=== PATIENT | male | born 1985 | race Asian ===

== ENCOUNTER 2020-06-10 09:38 | Emergency (ER) | payer MEDICAID ==
[~2020-06-10] VITALS: Ht 167.6 cm; Wt 95.5 kg
[2020-06-10] MEDS ORDERED: ACETAMINOPHEN 500 MG TABLET PO ONE (11:00)
[2020-06-10] MEDS ORDERED: POVIDONE-IODINE 10% 15 ML SOLUTION UD TP ONE (11:00)
[2020-06-10] MEDS ORDERED: PERTUSS(ACELL),DIPH,TET VAC/PF 0.5 ML VIAL IM ONE (11:00)
[2020-06-10] MEDS ORDERED: BACITRACIN 0.9 GM PACKET OINTMENT TP ONE (11:00)
[2020-06-10] MEDS ORDERED: AMOX TR/POT CLAV 875 MG/125 MG TABLET PO ONE (11:00)
[2020-06-10] MEDS ORDERED: LIDOCAINE 1% 10 ML VIAL INJ ONE (11:30)
[2020-06-10 13:03] VITALS: BP 133/69
== END 2020-06-10 13:26 | disposition home or self-care (01) ==
LOC: EMS 09:52
DX: S61.412A Laceration without foreign body of left hand, initial encounter (principal); W54.0XXA Bitten by dog, initial encounter; Y93.39 Activity, other involving climbing, rappelling and jumping off; Y92.89 Other specified places as the place of occurrence of the external cause; Y99.8 Other external cause status
CPT/HCPCS: 12004; 90471; 90715; 99283; J3490; 12002

== ENCOUNTER 2023-01-18 16:56 | Emergency (ER) | payer MEDICAID ==
[~2023-01-18] VITALS: Ht 165.1 cm; Wt 95.5 kg
[2023-01-18] MEDS ORDERED: SODIUM CHLORIDE 0.9% 250 ML IRRIG SOLUTION BOTTLE IRRIG ONE (21:00)
[2023-01-18] MEDS ORDERED: IBUPROFEN 600 MG TABLET PO ONE (21:00)
[2023-01-18] MEDS ORDERED: AMOX TR/POT CLAV 875 MG/125 MG TABLET PO ONE (21:00)
[2023-01-18 22:24] VITALS: BP 151/94
[2023-01-18] MEDS ORDERED: AMOX1TAB16 PO (22:25)
== END 2023-01-18 22:59 | disposition home or self-care (01) ==
LOC: EMS 16:59
DX: S81.851A Open bite, right lower leg, initial encounter (principal); F12.90 Cannabis use, unspecified, uncomplicated; W54.0XXA Bitten by dog, initial encounter; Y93.89 Activity, other specified; Y92.89 Other specified places as the place of occurrence of the external cause; Y99.8 Other external cause status
CPT/HCPCS: 99283